=== PATIENT | male | born 1980 | race American Indian/Alaskan Native ===

== ENCOUNTER 2017-02-05 10:18 | Emergency (ER) | payer OTHER ==
[2017-02-05 10:34] VITALS: TEMP 98.1; O2SAT 99; BMI 58.6
[2017-02-05] MEDS ORDERED: Sodium Chloride 0.9% 1,000 ML IV STA ×2 (11:28→12:39)
[2017-02-05 11:49] VITALS: RESP 18
[2017-02-05 11:57] LABS: URINE BILIRUBIN NEGATIVE (NEGATIVE); URINE BLOOD TRACE-LYSED (NEGATIVE); URINE GLUCOSE (UA) NEGATIVE (NEGATIVE); URINE KETONE NEGATIVE (NEGATIVE); URINE LEUKOCYTE ESTERASE NEGATIVE Leu/uL (NEGATIVE); URINE PROTEIN NEGATIVE mg/dL (<30 mg/dL); URINE UROBILINOGEN 0.2 E.U./dL (<1 E.U./dL)
[2017-02-05 11:58] LABS: BASO # 0.02 K/mm3 (0.0-2.0); BASO % 0.3 % (0.0-3.0); EOS # 0.2 (0.0-0.7); GRAN # 2.64 (1.4-6.5); GRAN % 45.7 % (50.0-68.0); HEMATOCRIT 42.3 % (42.0-52.0); LYMPH # 2.5 (1.2-3.4); LYMPH % 42.7 % (22.0-35.0); MEAN CELL VOLUME 89.6 fl (80.0-105.0); MEAN CORPUSCULAR HEMOGLOBIN 30.9 pg (25.0-35.0); MEAN CORPUSCULAR HGB CONC 34.5 g/dl (31.0-37.0); MEAN PLATELET VOLUME 9.6 fl (7.0-11.0); MONO # 0.4 (0.1-0.6); MONO % 7.3 % (1.0-6.0); RED CELL DISTRIBUTION WIDTH 12.7 % (11.5-14.5); WHITE BLOOD COUNT 5.8 10^3/ul (4.5-11.0)
[2017-02-05 11:58] LABS: URINE COLOR YELLOW (YELLOW)
[2017-02-05 11:59] LABS: URINE APPEARANCE CLEAR (CLEAR)
--- NOTE | 2017-02-05 12:03 | CT ---
PROCEDURE: CT HEAD WITHOUT CONTRAST. HISTORY: r/o infiltrate COMPARISON: None available. TECHNIQUE: Axial computed tomography images were obtained through the head/brain without intravenous contrast. Radiation dose: Total exam DLP = 726 mGy-cm. This CT exam was performed using one or more of the following dose reduction techniques: Automated exposure control, adjustment of the mA and/or kV according to patient size, and/or use of iterative reconstruction technique. FINDINGS: HEMORRHAGE: No intracranial hemorrhage. BRAIN: No mass effect or edema. No atrophy or chronic microvascular ischemic changes. VENTRICLES: Unremarkable. No hydrocephalus. CALVARIUM: There is a small amount of scalp swelling over the right parietal region. There is no associated fracture and no evidence of intracranial hemorrhage PARANASAL SINUSES: Unremarkable as visualized. No significant inflammatory changes. MASTOID AIR CELLS: Unremarkable as visualized. No inflammatory changes. OTHER FINDINGS: None. IMPRESSION: No acute intracranial finding
[2017-02-05 12:10] LABS: URINE BACTERIA FEW (NEG); URINE WBC 0 - 2 /hpf (0-6)
--- NOTE | 2017-02-05 12:19 | ED PDOC ---
Arrival/HPI - General Chief Complaint: Male Genitourinary Time Seen by Provider: 02/05/17 11:08 Historian: Patient - History of Present Illness Narrative History of Present Illness (Text): 02/05/17 11:22 A 36 year old male, with no significant past medical history, presents to the emergency department complaining of icnreased urinary frequency for couple weeks. Patient reports mild headache, which resolves when patient is hydrated. Patient denies of any fever, nausea, vomiting, dysuria, or any other complaints. Also, patient mentions he has not seen his PMD in 3 years. No PMD Time/Duration: > week (couple weeks) Symptom Onset: Sudden Symptom Course: Unchanged Past Medical History - Provider Review Nursing Documentation Reviewed: Yes - Infectious Disease Hx of Infectious Diseases: None - Tetanus Immunization Tetanus Immunization: Unknown - Psychiatric Hx Psychophysiologic Disorder: No Hx Anxiety: No Hx Bipolar Disorder: No Hx Depression: No Hx Emotional Abuse: No Hx Hallucinations: No Hx Panic Disorder: No Hx Post Traumatic Stress Disorder: No Hx Psychosis: No Hx Physical Abuse: No Hx Schizophrenia: No Hx Sexual Abuse: No Hx Substance Use: No - Anesthesia Hx Anesthesia: No Hx Anesthesia Reactions: No Hx Malignant Hyperthermia: No Family/Social History - Physician Review Nursing Documentation Reviewed: Yes Family/Social History: No Known Family HX Smoking Status: Never Smoked Hx Alcohol Use: No Hx Substance Use: No Allergies/Home Meds Allergies/Adverse Reactions: Allergies No Known Allergies Allergy (Verified 02/05/17 10:34) Home Medications: Home Meds Medication Instructions Recorded Confirmed No Known Home Med 02/05/17 02/05/17 Review of Systems - Physician Review All systems were reviewed & negative as marked: Yes - Review of Systems Constitutional: absent: Fevers Gastrointestinal: absent: Nausea, Vomiting Genitourinary Male: Frequency (increased urinary frequency). absent: Dysuria Neurological: Headache (mild headache which resolves when patient is hydrated) Physical Exam Vital Signs Reviewed: Yes Vital Signs Temp Pulse Resp BP Pulse Ox 02/05/17 12:49 64 18 155/83 H 99 02/05/17 11:42 65 18 158/94 H 99 02/05/17 10:34 98.1 F 67 17 165/100 H 99 Temperature: Afebrile Blood Pressure: Hypertensive Pulse: Regular Respiratory Rate: Normal Appearance: Positive for: Other (morbidly obese) Pain Distress: None Mental Status: Positive for: Alert and Oriented X 3 Finger Stick Blood Glucose: 81 - Systems Exam Head: Present: Atraumatic, Normocephalic Pupils: Present: PERRL Extroacular Muscles: Present: EOMI Conjunctiva: Present: Normal Mouth: Present: Moist Mucous Membranes Neck: Present: Normal Range of Motion Respiratory/Chest: Present: Clear to Auscultation, Good Air Exchange. No: Respiratory Distress, Accessory Muscle Use Cardiovascular: Present: Regular Rate and Rhythm, Normal S1, S2. No: Murmurs Abdomen: Present: Normal Bowel Sounds. No: Tenderness, Distention, Peritoneal Signs Back: Present: Normal Inspection Upper Extremity: Present: Normal Inspection. No: Cyanosis, Edema Lower Extremity: Present: Normal Inspection. No: Edema Neurological: Present: GCS=15, CN II-XII Intact, Speech Normal Skin: Present: Warm, Dry, Normal Color. No: Rashes Psychiatric: Present: Alert, Oriented x 3, Normal Insight, Normal Concentration Medical Decision Making ED Course and Treatment: 02/05/17 11:27 Impression: 36 year old male with increased urinary frequency and mild headache. No acute findings on physical exam. Plan: -- EKG -- Head CT -- Labs -- Urine Culture -- IV Fluids -- Urinalysis -- Reassess and disposition Prior Visits: Notes and results from previous visits were reviewed. Patient was last seen in the emergency department on 04/18/2015 for left knee pain and low back pain s/p fall. Patient was d/c home. Progress Notes: EKG: Ordered, reviewed, and independently interpreted the EKG. Rate : 69 BPM Rhythm : NSR Interpretation : No ST-segment elevations or depressions, no T-wave inversions, normal intervals. Comparison : No previous EKG for comparison. 02/05/2017 12:[address] IMPRESSION: No acute intracranial finding. Dictator: Mahamed Armijo MD 02/05/17 12:15 On re-evaluation, patient feels better and is in no acute distress. I have discussed the results and plan with the patient, who expresses understanding. Patient in agreement with plan to be discharged home. Patient is stable for discharge. Patient was instructed to follow up with physician or return if symptoms worsen or new concerning symptoms arise. - Lab Interpretations Lab Results: 02/05/17 11:27 02/05/17 11:27 Lab Results 02/05/17 11:31: Urine Color Yellow, Urine Appearance Clear, Urine pH 6.0, Ur Specific [place] <= 1.005, Urine Protein Negative, Urine Glucose (UA) Negative, Urine Ketones Negative, Urine Blood Trace-lysed H, Urine Nitrate Negative, Urine Bilirubin Negative, Urine Urobilinogen 0.2, Ur Leukocyte Esterase Negative , Urine RBC 1 - 3, Urine WBC 0 - 2, Ur Epithelial Cells None, Urine Bacteria Few 02/05/17 11:28: Hemoglobin A1c 5.8 02/05/17 11:27: Sodium 139, Potassium 4.3, Chloride 101, Carbon Dioxide 29, Anion Gap 14, BUN 10, Creatinine 0.9, Est GFR ( Amer) > 60, Est GFR (Non- Af Amer) > 60, Random Glucose 95, Calcium 10.0, Total Bilirubin 0.9, AST 65 H, ALT 67 H, Alkaline Phosphatase 65, Lactate Dehydrogenase 535, Total Creatine Kinase 1243 H, CK-MB (CK-2) 3.2, CK-MB (CK-2) % Cancelled, Troponin I < 0.01, Total Protein 8.2, Albumin 4.4, Globulin 3.8, Albumin/Globulin Ratio 1.1 02/05/17 11:27: WBC 5.8, RBC 4.72, Hgb 14.6, Hct 42.3, MCV 89.6, MCH 30.9, MCHC 34.5, RDW 12.7, Plt Count 355, MPV 9.6, Gran % 45.7 L, Lymph % (Auto) 42.7 H, [place] % (Auto) 7.3 H, Eos % (Auto) 4.0, Baso % (Auto) 0.3, Gran # 2.64, Lymph # 2.5, [place] # 0.4, Eos # 0.2, Baso # 0.02 I have reviewed the lab results: Yes - RAD Interpretation Radiology Orders: 02/05/17 11:27 HEAD W/O CONTRAST [CT] Stat - Medication Orders Current Medication Orders: Discontinued Medications Sodium Chloride (Sodium Chloride 0.9%) 1,000 mls @ 999 mls/hr IV .Q1H1M STA Stop: 02/05/17 12:28 Last Admin: 02/05/17 11:34 Dose: 999 mls/hr eMAR Start Stop Document 02/05/17 11:34 SE (Rec: 02/05/17 11:35 SE [id number]) Intravenous Solution Start Date 02/05/17 Start Time 11:35 Sodium Chloride (Sodium Chloride 0.9%) 1,000 mls @ 999 mls/hr IV .Q1H1M STA Stop: 02/05/17 13:39 Last Admin: 02/05/17 13:04 Dose: 999 mls/hr eMAR Start Stop Document 02/05/17 13:04 SE (Rec: 02/05/17 13:04 SE [id number]) Intravenous Solution Start Date 02/05/17 Start Time 13:04 - Scribe Statement The provider has reviewed the documentation as recorded by the Alphonse Pham Provider Scribe Attestation: All medical record entries made by the Scribe were at my direction and personally dictated by me. I have reviewed the chart and agree that the record accurately reflects my personal performance of the history, physical exam, medical decision making, and the department course for this patient. I have also personally directed, reviewed, and agree with the discharge instructions and disposition. Disposition/Present on Arrival - Present on Arrival Any Indicators Present on Arrival: No History of DVT/PE: No History of Uncontrolled Diabetes: No Urinary Catheter: No History of Decub. Ulcer: No History Surgical Site Infection Following: None - Disposition Have Diagnosis and Disposition been Completed?: Yes Diagnosis: Increased urinary frequency, Headache Disposition: HOME/ ROUTINE Disposition Time: 13:00 Condition: GOOD Discharge Instructions (ExitCare): Acute Headache (ED) Additional Instructions: Thank you for letting us take care of you today. The emergency medical care you received today was directed at your acute symptoms. If you were prescribed any medication, please fill it and take as directed. It may take several days for your symptoms to resolve. Return to the Emergency Department if your symptoms worsen, do not improve, or if you have any other problems. Please contact your doctor or call one of the physicians/clinics you have been referred to that are listed on the Patient Visit Information form that is included in your discharge packet. Bring any paperwork you were given at discharge with you along with any medications you are taking to your follow up visit. Our treatment cannot replace ongoing medical care by a primary care provider (PCP) outside of the emergency department. Thank you for allowing the [facility] team to be part of your care today. Please follow up with Dr. Chaidez in 3-4 days for re-evaluation and further management. Referrals: Merary Chaidez MD [Family Provider] - Follow up with primary Forms: [place] ([place])
[2017-02-05 12:24] LABS: ALB/GLOB RATIO 1.1 (1.1-1.8); ALKALINE PHOSPHATASE 65 U/L (38-126); ALT/SGPT 67 U/L (7-56); AST/SGOT 65 U/L (17-59); BILIRUBIN,TOTAL 0.9 mg/dL (0.2-1.3); BLOOD UREA NITROGEN 10 mg/dL (7-21); CARBON DIOXIDE 29 mmol/L (21-33); CHLORIDE 101 mmol/L (98-107); GFR AFRICAN-AMERICAN > 60; GLUCOSE,RANDOM 95 mg/dL (70-110); POTASSIUM 4.3 mmol/L (3.6-5.0); SODIUM 139 mmol/L (132-148); TOTAL PROTEIN 8.2 g/dL (5.8-8.3)
[2017-02-05 12:40] LABS: TROPONIN I < 0.01 ng/mL
[2017-02-05 12:49] VITALS: BP 155/83; PULSE 64
--- NOTE | 2017-02-06 09:52 | CARD ---
APPROVED REPORT EKG Measurement Heart [id number] <Conclusion> Normal sinus rhythm Small q in 3 T wave inversions 3,F Electrical artifact noted
== END 2017-02-05 13:51 | disposition home or self-care (01) ==
LOC: ED 10:18
DX: R51 Headache (principal); R35.0 Frequency of micturition
CPT/HCPCS: 70450; 80053; 81001; 82550; 82553; 83036; 83615; 84484; 85025; 87086; 93005; 99284; J7040